=== PATIENT | male | born 1985 | race Caucasian/White ===

== ENCOUNTER 2018-05-14 07:29 | Emergency (ER) | payer BC ==
[~2018-05-14] VITALS: Ht 182.9 cm; Wt 90.7 kg
[2018-05-14 07:41] VITALS: BP 124/67
[2018-05-14] MEDS ORDERED: KETOROLAC 60 MG/2 ML VIAL. IM ONE (07:45)
[2018-05-14] MEDS ORDERED: NAPR-514 PO (08:05)
--- NOTE | 2018-05-14 08:05 | PHYS DOC ---
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 He states the pain started when he was lifting a heavy cabinet into the truck. He states something similar aggravated this morning. He states it's not really improved at all over the course of the last several days. He states the pain is worse when he flexes or extends and much worse when he supinates he denies any direct trauma to the elbow.[] Review of Systems Review of Systems Constitutional: Denies fever or chills [] Eyes: Denies change in visual acuity, redness, or eye pain [] HENT: Denies nasal congestion or sore throat [] Respiratory: Denies cough or shortness of breath [] Cardiovascular: No additional information not addressed in HPI [] GI: Denies abdominal pain, nausea, vomiting, bloody stools or diarrhea [] : Denies dysuria or hematuria [] Musculoskeletal: Per history of present illness[] Integument: Denies rash or skin lesions [] Neurologic: Denies headache, focal weakness or sensory changes [] Endocrine: Denies polyuria or polydipsia [] All other systems were reviewed and found to be within normal limits, except as documented in this note. Current Medications Current Medications Current Medications Medications (Trade) Dose Ordered Sig/Rhiannon Start Time Stop Time Status Last Admin Dose Admin Ketorolac Tromethamine (Toradol Im) 60 mg 1X ONCE 05/14/18 07:45 05/14/18 07:51 DC Allergies Allergies Allergies Coded Allergies Type Severity Reaction Last Updated Verified No Known Drug Allergies 07/27/13 No Physical Exam Physical Exam Constitutional: Well developed, well nourished, no acute distress, non-toxic appearance. [] HENT: Normocephalic, atraumatic, bilateral external ears normal, oropharynx moist, no oral exudates, nose normal. [] Eyes: PERRLA, EOMI, conjunctiva normal, no discharge. [] Neck: Normal range of motion, no tenderness, supple, no stridor. [] Cardiovascular:Heart rate regular rhythm, no murmur [] Lungs & Thorax: Bilateral breath sounds clear to auscultation [] Abdomen: Bowel sounds normal, soft, no tenderness, no masses, no pulsatile masses. [] Skin: Warm, dry, no erythema, no rash. [] Back: No tenderness, no CVA tenderness. [] Extremities: Tenderness to palpable over the lateral epicondyles decreased range of motion secondary to pain[] Neurologic: Alert and oriented X 3, normal motor function, normal sensory function, no focal deficits noted. [] Psychologic: Affect normal, judgement normal, mood normal. [] Current Patient Data Vital Signs Vital Signs Date Time Temp Pulse Resp B/P (MAP) Pulse Ox O2 Delivery O2 Flow Rate FiO2 05/14/18 07:41 97.9 86 20 124/67 (86) 99 Room Air 97.9 EKG EKG [] Radiology/Procedures Radiology/Procedures [] Impressions: Right elbow x-ray is negative as interpreted by me Course & Med Decision Making Course & Med Decision Making Pertinent Labs and Imaging studies reviewed. (See chart for details) [] Dragon Disclaimer Dragon Disclaimer This electronic medical record was generated, in whole or in part, using a voice recognition dictation system. Departure Departure Impression: Primary Impression: Lateral epicondylitis of right elbow Disposition: HOME, SELF-CARE Condition: STABLE Referrals: NO PCP (PCP) Patient Instructions: Epicondylitis, Lateral (Tennis Elbow) with Rehab- [facility] Additional Instructions: Return to emergency with any new or concerning symptoms Scripts Naproxen (NAPROXEN) 500 Mg Tablet 1 TAB PO BID PRN for PAIN, #30 TAB 1 Refill Prov: SKIP COLLADO DO 05/14/18 SKIP COLLADO DO May 14, 2018 08:05
--- NOTE | 2018-05-14 08:18 | RAD ---
RIGHT ELBOW AP LATERAL Clinical Indication: HEARD POP TODAY AND HAS BEEN HURTING X 3 WEEKS PATIENT WAS LIFTING CABINETS. Comparison: None. Findings: Sensitivity decreased without true oblique view. There are 2 lateral views with slightly different positioning. There is no acute fracture or dislocation. No evidence of joint effusion. There is no radiopaque foreign body. The soft tissues are normal. IMPRESSION: No acute fracture or dislocation. Electronically signed by: Kee Whitfield MD (05/14/2018 8:13 AM) [id number]
== END 2018-05-14 08:48 | disposition home or self-care (01) ==
LOC: ER 07:29
DX: M77.11 Lateral epicondylitis, right elbow (principal)
CPT/HCPCS: 73080; 96372; 99283; J1885